=== PATIENT | male | born 1975 | race Caucasian/White ===

== ENCOUNTER 2024-03-13 05:50 | Day surgery (SDC) | payer OTHER ==
[~2024-03-13] VITALS: Ht 172.7 cm; Wt 122.5 kg
[2024-03-13] MEDS ORDERED: MEPERIDINE 100 MG INJ. 100 MG/ML VIAL ONE (07:28)
[2024-03-13] MEDS ORDERED: MIDAZOLAM HCL 5 MG/5 ML VIAL ONE (07:29)
[2024-03-13 11:21] VITALS: BP_SYST 152; PULSE 103; RESP 18; TEMP 97.7; O2SAT 98
== END 2024-03-13 08:38 | disposition home or self-care (01) ==
LOC: SDS 05:50 → SMU 05:50 → SDS 08:38
PROVIDERS: ATTEND Internal Medicine Gastroenterology
DX: Z12.11 Encounter for screening for malignant neoplasm of colon (principal); K64.8 Other hemorrhoids; K21.9 Gastro-esophageal reflux disease without esophagitis; I10 Essential (primary) hypertension; E11.9 Type 2 diabetes mellitus without complications; Z79.84 Long term (current) use of oral hypoglycemic drugs; Z79.899 Other long term (current) drug therapy
CPT/HCPCS: 45378; 82948; 99152; G0378; J2250; J2175

== ENCOUNTER 2024-03-14 09:05 | Outpatient (CLI) | payer OTHER | END 2024-03-14 18:07 | disposition home or self-care (01) | LOC: SCT 09:05 | PROVIDERS: ATTEND Orthopaedic Surgery | DX: M17.11 Unilateral primary osteoarthritis, right knee (principal) ==

== ENCOUNTER 2024-05-02 05:55 | Day surgery (SDC) | payer OTHER ==
[~2024-05-02] VITALS: Ht 172.7 cm; Wt 123.5 kg
[2024-05-02] MEDS ORDERED: ceFAZolin SODIUM 3 GM in D5W 100 ML IV ONE (06:00)
[2024-05-02] MEDS ORDERED: ACETAMINOPHEN 500 MG TABLET ONE (06:13)
[2024-05-02] MEDS ORDERED: PROPOFOL DRIP 100 ML IV ONE (07:18)
[2024-05-02] MEDS ORDERED: MIDAZOLAM HCL 2 MG/2 ML VIAL (VERSED) ONE (07:18)
[2024-05-02] MEDS: ACETAMINOPHEN 500 MG TABLET PO ONE (07:18)
[2024-05-02] MEDS ORDERED: BUPIVACAINE /DEX PF 0.75% SPINAL 2 ML AMP INJ ONE (07:19)
[2024-05-02] MEDS ORDERED: SEVOFLURANE 15 MIN GAS INH ONE (07:19)
[2024-05-02] MEDS ORDERED: EPINEPHrine HCL 1 MG/ML VIAL ONE (07:19)
[2024-05-02] MEDS ORDERED: LR 1,000 ML IV.SOLN IV ONE (07:19)
[2024-05-02] MEDS ORDERED: ONDANSETRON HCL 4 MG/2 ML VIAL ONE (07:19)
[2024-05-02] MEDS ORDERED: WATER FOR IRRIGATION,STERILE 1,000 ML IRRIG.SOLN IR ONE (07:19)
[2024-05-02] MEDS ORDERED: ROPIVACAINE HCL/PF 5 MG/ML 0.5% 30 ML VIAL ONE (07:19)
[2024-05-02 09:01] VITALS: PULSE 97; RESP 16; TEMP 97.2; O2SAT 95
[2024-05-02] MEDS ORDERED: traMADol HCL HCL 50 MG TABLET (ULTRAM) PO PRN (11:00)
[2024-05-02] MEDS ORDERED: HYDROmorphone 1 MG/ML INJ. CARTRIDGE IVP PRN ×6 (11:00→12:00)
[2024-05-02] MEDS ORDERED: oxyCODONE HCL 5 MG TABLET PO PRN ×2 (11:00)
[2024-05-02] MEDS ORDERED: LORATADINE 10 MG TABLET PO PRN (11:00)
[2024-05-02] MEDS ORDERED: ceFAZolin SODIUM 2 GM in D5W 50 ML IV SCH (11:15)
[2024-05-02] MEDS ORDERED: BISACODYL 10 MG/SUPPOSITORY RC PRN (11:30)
[2024-05-02] MEDS ORDERED: DIPHENHYDRAMINE HCL 25 MG CAPSULE PO PRN (11:30)
[2024-05-02] MEDS ORDERED: LACTULOSE 20 GM/30 ML UDC PO PRN (11:30)
[2024-05-02] MEDS ORDERED: METOCLOPRAMIDE HCL 10 MG/2 ML VIAL IVP PRN (11:30)
[2024-05-02] MEDS ORDERED: ONDANSETRON HCL 4 MG/2 ML VIAL IVP PRN ×2 (11:45→12:00)
[2024-05-02] MEDS ORDERED: NALOXONE HCL 0.4 MG/ML AMP (NARCAN) IVP PRN (12:00)
[2024-05-02] MEDS ORDERED: hydrALAZINE HCL 20 MG/ML VIAL IV PRN (12:00)
[2024-05-02] MEDS ORDERED: HYDROmorphone 1 MG/ML INJ. CARTRIDGE ONE (13:44)
[2024-05-02] MEDS ORDERED: ACETAMINOPHEN 500 MG TABLET PO SCH (14:00)
[2024-05-02] MEDS ORDERED: TAMSULOSIN HCL 0.4 MG CAP PO ONE (14:15)
[2024-05-02] MEDS ORDERED: TAMSULOSIN HCL 0.4 MG CAP ONE (14:27)
[2024-05-02 15:18] VITALS: BP_SYST 144
[2024-05-02] MEDS ORDERED: SENNOSIDES/DOCUSATE SODIUM 1 TAB TABLET(SENOKOT-S) PO SCH (21:00)
[2024-05-03] MEDS ORDERED: ASPIRIN 81 MG TAB.CHEW PO SCH (09:00)
== END 2024-05-02 18:15 | disposition home or self-care (01) ==
LOC: SMU 05:55 → SDS 05:55
PROVIDERS: ATTEND Orthopaedic Surgery
DX: M17.11 Unilateral primary osteoarthritis, right knee (principal); M25.561 Pain in right knee; M25.761 Osteophyte, right knee; I10 Essential (primary) hypertension; K21.9 Gastro-esophageal reflux disease without esophagitis; E11.9 Type 2 diabetes mellitus without complications; E66.01 Morbid (severe) obesity due to excess calories; E78.5 Hyperlipidemia, unspecified; G89.29 Other chronic pain; G47.33 Obstructive sleep apnea (adult) (pediatric); Z68.41 Body mass index [BMI] 40.0-44.9, adult; Z98.890 Other specified postprocedural states; Z79.84 Long term (current) use of oral hypoglycemic drugs; Z79.899 Other long term (current) drug therapy
CPT/HCPCS: 27447; 97162; 86886; 97116; 97530; 97110; 86900; 86901; 36415; 73560; 82948; 64447; J3490; J0690; J0696; J0171; J2250; J2405; J2704; J1171; J7060; J7120; C1776 ×4; C1713